=== PATIENT | male | born 2000 | race African-American/Black ===

== ENCOUNTER 2023-04-18 09:22 | Inpatient (IN) | payer OTHER ==
[2023-04-18 10:07] VITALS: BMI 17.9
[2023-04-18] MEDS ORDERED: hydrOXYzine PAMOATE 25 MG CAPSULE (FP) PO PRN (11:07)
[2023-04-18] MEDS ORDERED: BENZONATATE 200 MG CAPSULE PO PRN (11:07)
[2023-04-18] MEDS ORDERED: NALOXONE HCL 0.4 MG/ML VIAL IM PRN (11:07)
[2023-04-18] MEDS ORDERED: IBUPROFEN 400 MG TABLET (FP) PO PRN (11:07)
[2023-04-18] MEDS ORDERED: IBUPROFEN 600 MG TABLET (FP) PO PRN (11:07)
[2023-04-18] MEDS ORDERED: guaiFENesin 600 MG TABLET.ER (FP) PO PRN (11:07)
[2023-04-18] MEDS ORDERED: BENZOCAINE/MENTHOL (CHLORASEPTIC ) LOZENGE MM PRN (11:07)
[2023-04-18] MEDS ORDERED: LOPERAMIDE HCL 2 MG CAPSULE PO PRN (11:07)
[2023-04-18] MEDS ORDERED: MAGNESIUM HYDROX 2400MG/30ML ORAL SUSPENSION 30 ML CUP PO PRN (11:07)
[2023-04-18] MEDS ORDERED: NALOXONE HCL (KLOXXADO) 8 MG SPRAY NS PRN (11:07)
[2023-04-18] MEDS ORDERED: POLYETHYLENE GLYCOL (HEALTHYLAX) 3350 17 GM PACKET PO PRN (11:07)
[2023-04-18] MEDS ORDERED: MAG HYDROX/AL HYDROX/SIMETH 30 ML UNIT-DOSE CUP PO PRN (11:07)
[2023-04-18] MEDS ORDERED: TUBERCULIN PPD 5 TU/0.1ML VIAL ID ONE (15:02)
[2023-04-18] MEDS: NICOTINE 7 MG/24 HOURS TOPICAL PATCH TD SCH (15:03)
[2023-04-18] MEDS: PRENATAL VITAMINS W/ FOLIC ACID TABLET (FP) PO SCH (15:06)
[2023-04-18] MEDS: THIAMINE HCL 100 MG TABLET (FP) PO SCH (21:43)
[2023-04-18] MEDS: MELATONIN 5 MG TABLETS PO SCH (21:43)
[2023-04-18] MEDS ORDERED: BACLOFEN 10 MG TABLET (FP) PO SCH (22:00)
[2023-04-18 23:35] LABS: HIV INTERPRETATION PRESUMPTIVE POSITIVE (NEGATIVE)
[2023-04-19] MEDS: BICTEGRAV/EMTRICIT/TENOFOV (BIKTARVY) 50-200-25 MG TABLET PO SCH (07:08)
[2023-04-19 12:46] LABS: EPI CELLS 20 /uL (0-25.1); HYALINE CASTS 0 /uL (0-3.1); PH,URINE 6.5 (5.0-8.0); URINE APPEARANCE CLEAR; URINE BACTERIA 110 /uL (0-1359); URINE BILIRUBIN NEGATIVE (NEGATIVE); URINE COLOR YELLOW; URINE GLUCOSE (UA) NEGATIVE (NEGATIVE); URINE KETONE NEGATIVE (NEGATIVE); URINE LEUK ESTERASE TRACE (NEGATIVE); URINE NITRITE NEGATIVE (NEGATIVE); URINE PROTEIN NEGATIVE (NEGATIVE); URINE RBC 2 /uL (0-23.9); URINE UROBILINOGEN 0.2 mg/dL (0.2-1.0); URINE WBC 41 /uL (0-25.8)
[2023-04-19 12:55] LABS: ALBUMIN 3.7 g/dl (3.4-5.0)
[2023-04-19 12:59] LABS: HEMOGLOBIN 13.2 GM/dL (11.7-16.9); MCH 25.1 pg (25.7-33.7); MCHC 32.9 g/dl (32.0-35.9); MEAN CELL VOLUME 76.2 fl (80-96); MEAN PLT VOLUME 8.3 fl (7.5-11.1); PLATELET COUNT 282 10^3/uL (134-434); RBC 5.24 M/mm3 (4.00-5.60); RDW 15.4 % (11.9-15.9); WHITE BLOOD COUNT 3.3 K/mm3 (4.0-10.0)
[2023-04-19 15:42] LABS: BASO % 0.6 % (0-2.0); HEMATOCRIT 39.5 % (35.4-49); HEMOGLOBIN 12.6 GM/dL (11.7-16.9); LYMPH % 38.4 % (8-40); MCH 24.5 pg (25.7-33.7); MCHC 31.8 g/dl (32.0-35.9); MEAN CELL VOLUME 76.9 fl (80-96); MEAN PLT VOLUME 8.1 fl (7.5-11.1); PLATELET COUNT 286 10^3/uL (134-434); RBC 5.14 M/mm3 (4.00-5.60); RDW 15.6 % (11.9-15.9)
[2023-04-19 16:07] LABS: POTASSIUM 3.8 mmol/L (3.5-5.1)
[2023-04-19 16:12] LABS: CALCIUM 8.8 mg/dL (8.5-10.1)
[2023-04-19 16:13] LABS: ALBUMIN 3.2 g/dl (3.4-5.0); BLOOD UREA NITROGEN 7.8 mg/dL (7-18)
[2023-04-19 16:16] LABS: CREATININE 0.8 mg/dL (0.55-1.3)
[2023-04-19 16:18] LABS: BILIRUBIN,TOTAL 0.3 mg/dL (0.2-1); TOT PROT 7.2 g/dl (6.4-8.2)
[2023-04-20] MEDS: NICOTINE POLACRILEX 2 MG GUM BUC PRN (09:44)
[2023-04-21] MEDS: ACETAMINOPHEN 325 MG TABLET (FP) PO PRN (21:41)
[2023-04-24] MEDS: PENICILLIN G BENZATHINE 2,400,000 UNIT/4 ML PFS IM ONE (11:00)
[2023-04-24] MEDS: METHOCARBAMOL 500 MG TABLET PO PRN (21:05)
[2023-04-27 06:59] VITALS: RESP 17
[2023-04-28 06:40] VITALS: PULSE 100
[2023-04-29 06:42] VITALS: BP 117/88; TEMP 97.1
[2023-05-01] MEDS ORDERED: PENICILLIN G BENZATHINE 2,400,000 UNIT/4 ML PFS IM ONE (10:00)
[2023-05-08] MEDS ORDERED: PENICILLIN G BENZATHINE 2,400,000 UNIT/4 ML PFS IM ONE (10:00)
== END 2023-04-29 11:31 | disposition home or self-care (01) | DRG 772 ==
LOC: YASAS 09:22 → Y3W 14:14
PROVIDERS: ADMIT Allergy & Immunology; ATTEND Psychiatry & Neurology Pain Medicine
PROC: HZ42ZZZ Group Counseling for Substance Abuse Treatment, Cognitive-Behavioral (ICD-10-PCS; principal; 2023-04-18)
DX: F15.20 Other stimulant dependence, uncomplicated (principal); F12.20 Cannabis dependence, uncomplicated; F17.210 Nicotine dependence, cigarettes, uncomplicated; F32.A Depression, unspecified; Z21 Asymptomatic human immunodeficiency virus [HIV] infection status; M25.551 Pain in right hip; R26.2 Difficulty in walking, not elsewhere classified; R76.8 Other specified abnormal immunological findings in serum; Z86.59 Personal history of other mental and behavioral disorders
CPT/HCPCS: 36415; 80053; 80305; 81003; 85025; 85027; 86359; 86360; 86593; 86780; 87389; 87635

== ENCOUNTER 2023-06-14 11:38 | Inpatient (IN) | payer OTHER ==
[2023-06-14 12:44] VITALS: BMI 17.4
[2023-06-14] MEDS ORDERED: NALOXONE HCL 0.4 MG/ML VIAL IVPUSH PRN (13:41)
[2023-06-14] MEDS ORDERED: BENZOCAINE/MENTHOL (CHLORASEPTIC ) LOZENGE MM PRN (13:41)
[2023-06-14] MEDS ORDERED: ACETAMINOPHEN 325 MG TABLET (FP) PO PRN (13:41)
[2023-06-14] MEDS ORDERED: hydrOXYzine PAMOATE 25 MG CAPSULE (FP) PO PRN (13:41)
[2023-06-14] MEDS ORDERED: IBUPROFEN 600 MG TABLET (FP) PO PRN (13:41)
[2023-06-14] MEDS ORDERED: POLYETHYLENE GLYCOL (HEALTHYLAX) 3350 17 GM PACKET PO PRN (13:41)
[2023-06-14] MEDS ORDERED: NALOXONE (NYS OPIOID OVERDOSE PROGRAM) 4 MG/0.1 ML SPRAY NS PRN (13:41)
[2023-06-14] MEDS ORDERED: IBUPROFEN 400 MG TABLET (FP) PO PRN (13:41)
[2023-06-14] MEDS ORDERED: MAG HYDROX/AL HYDROX/SIMETH 30 ML UNIT-DOSE CUP PO PRN (13:41)
[2023-06-14] MEDS ORDERED: guaiFENesin 600 MG TABLET.ER (FP) PO PRN (13:41)
[2023-06-14] MEDS ORDERED: LOPERAMIDE HCL 2 MG CAPSULE PO PRN (13:41)
[2023-06-14] MEDS ORDERED: BENZONATATE 200 MG CAPSULE PO PRN (13:41)
[2023-06-14] MEDS ORDERED: METHOCARBAMOL 500 MG TABLET PO PRN (13:41)
[2023-06-14] MEDS ORDERED: MAGNESIUM HYDROX 2400MG/30ML ORAL SUSPENSION 30 ML CUP PO PRN (13:41)
[2023-06-14] MEDS: PRENATAL VITAMINS W/ FOLIC ACID TABLET (FP) PO SCH (15:05)
[2023-06-14] MEDS: THIAMINE 100 MG TABLET PO SCH (21:18)
[2023-06-14] MEDS: MELATONIN 5 MG TABLETS PO SCH (21:18)
[2023-06-15] MEDS: BICTEGRAV/EMTRICIT/TENOFOV (BIKTARVY) 50-200-25 MG TABLET PO SCH (07:07)
[2023-06-15] MEDS ORDERED: BICTEGRAV/EMTRICIT/TENOFOV (BIKTARVY) 50-200-25 MG TABLET PO SCH (10:00)
[2023-06-18 07:23] VITALS: BP 130/75; PULSE 70; RESP 18; TEMP 97.7
[2023-06-18 11:39] LABS: POTASSIUM 4.2 mmol/L (3.5-5.1)
[2023-06-18 11:40] LABS: BASO % 0.4 % (0-2.0); EOS % 2.3 % (0-4.5); HEMATOCRIT 42.5 % (35.4-49); HEMOGLOBIN 13.2 GM/dL (11.7-16.9); LYMPH % 46.6 % (8-40); MCH 24.4 pg (25.7-33.7); MEAN CELL VOLUME 78.7 fl (80-96); MEAN PLT VOLUME 8.5 fl (7.5-11.1); MONO % 9.2 % (3.8-10.2); NEUT % 41.5 % (42.8-82.8); PLATELET COUNT 292 10^3/uL (134-434); RDW 16.3 % (11.9-15.9); WHITE BLOOD COUNT 7.2 K/mm3 (4.0-10.0)
[2023-06-18 11:40] LABS: CALCIUM 9.7 mg/dL (8.5-10.1)
[2023-06-18 11:41] LABS: ALBUMIN 3.7 g/dl (3.4-5.0); BLOOD UREA NITROGEN 8.4 mg/dL (7-18); MAGNESIUM 1.6 mg/dL (1.8-2.4)
[2023-06-18 11:44] LABS: CREATININE 0.9 mg/dL (0.55-1.3)
[2023-06-18 11:46] LABS: BILIRUBIN,TOTAL 0.2 mg/dL (0.2-1); TOT PROT 7.5 g/dl (6.4-8.2)
== END 2023-06-18 15:42 | disposition home or self-care (01) | DRG 772 ==
LOC: YASAS 11:38 → Y3E 14:29
PROVIDERS: ADMIT Allergy & Immunology; ATTEND Psychiatry & Neurology Pain Medicine
PROC: HZ42ZZZ Group Counseling for Substance Abuse Treatment, Cognitive-Behavioral (ICD-10-PCS; principal; 2023-06-14)
DX: F15.20 Other stimulant dependence, uncomplicated (principal); F12.20 Cannabis dependence, uncomplicated; F17.210 Nicotine dependence, cigarettes, uncomplicated; F19.282 Other psychoactive substance dependence with psychoactive substance-induced sleep disorder; B20 Human immunodeficiency virus [HIV] disease; Z79.899 Other long term (current) drug therapy; Z86.19 Personal history of other infectious and parasitic diseases
CPT/HCPCS: 36415; 80053; 80305; 82652; 83735; 85025; 86593; 86780; 86803; 87522; 87811; 93005; 93010

== ENCOUNTER 2023-07-09 12:03 | Inpatient (IN) | payer OTHER ==
[2023-07-09 13:04] VITALS: BMI 18.6
[2023-07-09] MEDS ORDERED: LOPERAMIDE HCL 2 MG CAPSULE PO PRN (13:47)
[2023-07-09] MEDS ORDERED: MAG HYDROX/AL HYDROX/SIMETH 30 ML UNIT-DOSE CUP PO PRN (13:47)
[2023-07-09] MEDS ORDERED: MAGNESIUM HYDROX 2400MG/30ML ORAL SUSPENSION 30 ML CUP PO PRN (13:47)
[2023-07-09] MEDS ORDERED: NALOXONE HCL 0.4 MG/ML VIAL IM PRN (13:47)
[2023-07-09] MEDS ORDERED: POLYETHYLENE GLYCOL (HEALTHYLAX) 3350 17 GM PACKET PO PRN (13:47)
[2023-07-09] MEDS ORDERED: NALOXONE HCL (KLOXXADO) 8 MG SPRAY NS PRN (13:47)
[2023-07-09] MEDS ORDERED: BENZONATATE 200 MG CAPSULE PO PRN (13:47)
[2023-07-09] MEDS ORDERED: BENZOCAINE/MENTHOL (CHLORASEPTIC ) LOZENGE MM PRN (13:47)
[2023-07-09] MEDS ORDERED: IBUPROFEN 600 MG TABLET (FP) PO PRN (13:47)
[2023-07-09] MEDS ORDERED: ACETAMINOPHEN 325 MG TABLET (FP) PO PRN (13:47)
[2023-07-09] MEDS ORDERED: IBUPROFEN 400 MG TABLET (FP) PO PRN (13:47)
[2023-07-09] MEDS ORDERED: guaiFENesin 600 MG TABLET.ER (FP) PO PRN (13:47)
[2023-07-09] MEDS: TUBERCULIN PPD 5 TU/0.1ML VIAL ID ONE (15:46)
[2023-07-09] MEDS: BICTEGRAV/EMTRICIT/TENOFOV (BIKTARVY) 50-200-25 MG TABLET PO SCH ×2 (20:03→20:05)
[2023-07-09] MEDS: MELATONIN 5 MG TABLETS PO SCH (22:40)
[2023-07-09] MEDS: THIAMINE 100 MG TABLET PO SCH (22:40)
[2023-07-10 10:24] LABS: HEMATOCRIT 35.9 % (35.4-49); HEMOGLOBIN 11.3 GM/dL (11.7-16.9); MCH 25.1 pg (25.7-33.7); MCHC 31.5 g/dl (32.0-35.9); MEAN CELL VOLUME 79.8 fl (80-96); MEAN PLT VOLUME 9.2 fl (7.5-11.1); PLATELET COUNT 225 10^3/uL (134-434); RBC 4.49 M/mm3 (4.00-5.60); RDW 16.5 % (11.9-15.9); WHITE BLOOD COUNT 4.8 K/mm3 (4.0-10.0)
[2023-07-10 10:28] LABS: POTASSIUM 3.9 mmol/L (3.5-5.1)
[2023-07-10 10:38] LABS: BLOOD UREA NITROGEN 7.1 mg/dL (7-18); CALCIUM 8.9 mg/dL (8.5-10.1)
[2023-07-10 10:39] LABS: ALBUMIN 3.5 g/dl (3.4-5.0)
[2023-07-10 10:41] LABS: CREATININE 0.9 mg/dL (0.55-1.3)
[2023-07-10 10:43] LABS: BILIRUBIN,TOTAL 0.3 mg/dL (0.2-1); TOT PROT 6.6 g/dl (6.4-8.2)
[2023-07-10] MEDS: PRENATAL VITAMINS W/ FOLIC ACID TABLET (FP) PO SCH (10:59)
[2023-07-11 12:11] LABS: PH,URINE 7.5 (5.0-8.0); URINE APPEARANCE CLEAR; URINE BILIRUBIN NEGATIVE (NEGATIVE); URINE COLOR YELLOW; URINE GLUCOSE (UA) NEGATIVE (NEGATIVE); URINE KETONE NEGATIVE (NEGATIVE); URINE LEUK ESTERASE NEGATIVE (NEGATIVE); URINE NITRITE NEGATIVE (NEGATIVE); URINE PROTEIN NEGATIVE (NEGATIVE); URINE UROBILINOGEN 0.2 mg/dL (0.2-1.0)
[2023-07-11 14:59] VITALS: RESP 18
[2023-07-11] MEDS: hydrOXYzine PAMOATE 25 MG CAPSULE (FP) PO PRN (21:21)
[2023-07-11 21:52] VITALS: BP 144/76; PULSE 112; TEMP 98
== END 2023-07-11 22:13 | disposition left against medical advice (07) | DRG 770 ==
LOC: YASAS 12:03 → Y3NR 14:22 → Y3W 07-11 14:22
PROVIDERS: ADMIT Allergy & Immunology; ATTEND Psychiatry & Neurology Pain Medicine
PROC: HZ42ZZZ Group Counseling for Substance Abuse Treatment, Cognitive-Behavioral (ICD-10-PCS; principal; 2023-07-09)
DX: F15.20 Other stimulant dependence, uncomplicated (principal); F12.20 Cannabis dependence, uncomplicated; F19.24 Other psychoactive substance dependence with psychoactive substance-induced mood disorder; F41.8 Other specified anxiety disorders; Z21 Asymptomatic human immunodeficiency virus [HIV] infection status; Z72.0 Tobacco use; Z79.899 Other long term (current) drug therapy; Z86.19 Personal history of other infectious and parasitic diseases
CPT/HCPCS: 36415; 80053; 80305; 80307; 81003; 85027; 86593; 86780; 87811; 93005; 93010